=== PATIENT | female | born 1945 | race Caucasian/White ===

== ENCOUNTER 2022-05-18 04:20 | Inpatient (IN) | payer MEDICARE, MEDICAID ==
[~2022-05-18] VITALS: Ht 167.6 cm; Wt 68.0 kg
[2022-05-18] VITALS (77 sets, daily range): BP systolic 65–126; BP diastolic 24–65
--- NOTE | 2022-05-18 04:27 | NUR ---
PT ARRIVED VIA EMS
[2022-05-18] MEDS ORDERED: WARFARIN7.5 MG PO (04:44)
--- NOTE | 2022-05-18 04:49 | NUR ---
PT IN ROOM ON MONITOR, RAPID RHINO IMPREGNATED WITH AFARIN PLACED BY MD IN LEFT NARE, BLEEDING APPEARS TO BE SLOWING, AWAITING LAB FOR TYPE AND SCREEN, WILL CONT TO MONITOR.
[2022-05-18 05:06] LABS: HEMATOCRIT 25.1 % (37.0-47.0); IMMATURE GRANULOCYTES 0.3 % (0.0-5.0); MEAN CELL VOLUME 98.8 fL CALC (80.0-100.0); MEAN CORPUSCULAR HGB 31.5 pG CALC (26.0-32.0); MEAN CORPUSCULAR HGB CONC 31.9 g/dL CAL (32.0-36.0); NEUT# 8.11 thou/uL (2.00-7.15); RED BLOOD COUNT 2.54 mill/uL (4.20-5.60); RED CELL DISTRI WIDTH 15.6 % (11.5-15.5)
[2022-05-18 05:28] LABS: ALBUMIN 3.2 g/dL (3.2-5.0); ALKALINE PHOSPHATASE 91 u/l (38-126); ANION GAP 7 (6-22 (CALC)); BILIRUBIN, TOTAL 0.8 mg/dL (0.0-1.4); BUN 36 mg/dL (8-23); BUN/CREATININE RATIO 47 (12-20 (CALC)); CARBON DIOXIDE 28 mmol/l (22-30); CHLORIDE 103 mmol/l (95-108); CREATININE 0.8 mg/dL (0.5-1.0); GFR FOR AFR.AMER. > 60 ML/MIN (>=60 (CALC)); GFR OTHER RACES > 60 ML/MIN (>=60 (CALC)); POTASSIUM 4.3 mmol/l (3.5-5.1); SGOT/AST 36 u/l (9-36); SODIUM 134 mmol/l (137-146); TOTAL PROTEIN 6.9 g/dL (6.3-8.2)
[2022-05-18 05:30] LABS: ACT PARTIAL THROMBO TIME 41.6 SECONDS (20.0-32.5); PROTHROMBIN TIME 44.8 SECONDS (9.0-12.5)
[2022-05-18 05:36] LABS: INTERNATIONAL NORMALIZED RATIO 4.7 RATIO (0.7-1.3)
--- NOTE | 2022-05-18 05:51 | NUR ---
PT IN ROOM ON MONITOR AWAITING TEST RESULTS, BLEEDING CONTROLLED AT THIS TIME, WILL CONT TO MONITOR.
--- NOTE | 2022-05-18 06:52 | NUR ---
PT TO CT SCAN, PT BLOOD PRESSURE CONTINUES TO BE HYPOTENSIVE DESPITE IV FLUIDS, PROVIDER AWARE.
--- NOTE | 2022-05-18 06:55 | NUR ---
ORDER FOR ADDITIONAL IV FLUIDS RECEIVED, WILL START WHEN PT RETURNS FROM CT SCAN.
[2022-05-18] MEDS ORDERED: METOPROL TAR25 MG PO (07:18)
[2022-05-18] MEDS ORDERED: FUROSEMIDE20 MG PO (07:19)
[2022-05-18] MEDS ORDERED: SPIRONOLACTONE25 MG PO (07:19)
[2022-05-18] MEDS ORDERED: FOLIC ACID1 MG PO (07:20)
[2022-05-18] MEDS ORDERED: METHOTREXATE S2.5 MG PO (07:21)
[2022-05-18] MEDS ORDERED: REMICADE INJ100 MG IV (07:22)
--- NOTE | 2022-05-18 07:37 | NUR ---
REPORT GIVEN TO ADEBAYO BECERRA.
--- NOTE | 2022-05-18 10:08 | NUR ---
RECD CALL FROM [facility] ADVISING PT HAD GASTROENTERITIS VS SMALL BOWEL OBSTRUCTION MID SMALL INTESTINE. ER MD ADVISED. RADIOLOGY ADVISED THEY AREA REACHING OUT TO DR AQUINO FOR VERIFICATION.
--- NOTE | 2022-05-18 10:32 | NUR ---
PT TOLERATING TRANSFUSIONS
--- NOTE | 2022-05-18 10:43 | NUR ---
PT REQUESTED DRESS TO BE REMOVED IT WAS SOILED, AND WANTED TO BE PUT INTO A GOWN. SHE ALSO STATED TO "JUST CUT THE DRESS SO IT WON'T BE TANGLED WITH THE WIRES." HER DRESS WAS CUT AND SHE WAS PUT INTO A GOWN. SHE WAS ALSO NONCOMPLIANT WITH THE PURE WICK AND STATED TO USE BEDSIDE COMODE.
--- NOTE | 2022-05-18 12:00 | NUR ---
PATIENT IS A/OX3, ABLE TO MAKE NEEDS KNOWN TO STAFF. DENIES PAIN AT THIS TIME. CLEAR LUNG SOUNDS. ACTIVE BOWEL SOUNDS. SOFT NON TENDER ABDOMEN. NO OTHER BLEED BESIDES THE NOSE, PLUGGED LEFT NARE. PT STATED SHE "HAD THESE FREQUENT NOSE BLEEDS FOR PAST 2/3 YEARS". NO ARM OR LEG DRIFTS. 3+ PTTING EDEMA BILATERAL LEGS. WEAK PEDAL PULSES. SAFETY MEASURES IN PLACE. BSC. CALL LIGHT IN REACH. WILL CONTINUE TO MONITOR PER HOSPITAL'S POLICY.
--- NOTE | 2022-05-18 13:06 | NUR ---
per doctor mary jo, no more plasma, give just one unit of RBCs
--- NOTE | 2022-05-18 13:20 | NUR ---
INFORMED LAB NO NEED FOR PLASMA
--- NOTE | 2022-05-18 13:30 | NUR ---
PER MOE NO MORE BLOOD TO BE GIVEN, NOT EVEN RBCS STATED EARLIER AFTER ASSESSING PT AT BEDSIDE.
--- NOTE | 2022-05-18 14:00 | NUR ---
INFORMED LAB NO NEED FOR EITHER BLOOD PRODUCTS FOR THE 3RD TIME TODAY.
--- NOTE | 2022-05-18 16:00 | NUR ---
CARIDZEM DRIP STOPPED. VITALS STABLE.
--- NOTE | 2022-05-18 18:25 | NUR ---
LAB CALLED AGAIN, INFORMED THEM AGAIN, NO NEED FOR BLOOD PRODUCTS, THEY SEEM UPSET, PER DOCTOR ORDERS WERE D/C'D HE DOESNT WANT PATIENT TO REICEVE THEM.
--- NOTE | 2022-05-18 20:00 | NUR ---
Patient in bed. nasal packing on the left nares noted.REMAIN ON afib RVR .cardizem drip at 5 mg/hr titrating to keep HR below 100.
--- NOTE | 2022-05-18 21:56 | NUR ---
patient resting. watching TV. no complaint of pain or discomfort.
[2022-05-19] VITALS (73 sets, daily range): BP systolic 91–126; BP diastolic 31–82
--- NOTE | 2022-05-19 | NUR ---
assisted to bedside commode. no s/s of distressnoted.
--- NOTE | 2022-05-19 02:59 | NUR ---
PATIENT AWAKE ,ALERT ,WATCHING T.V . NO C/C OF DISTRESS. REMAIN ON CARDIZEM DRIP.
--- NOTE | 2022-05-19 03:53 | NUR ---
Patient sleeping .nasal packing remain intact. remain on cardizem drip at 5 mg/hr
--- NOTE | 2022-05-19 04:24 | NUR ---
patient is awake. watching TV. denies any discomfort. continue to monitor.
[2022-05-19 05:35] LABS: HEMATOCRIT 23.6 % (37.0-47.0); HEMOGLOBIN 7.9 g/dl (12.0-16.0); MEAN CELL VOLUME 94.4 fL CALC (80.0-100.0); MEAN CORPUSCULAR HGB 31.6 pG CALC (26.0-32.0); MEAN CORPUSCULAR HGB CONC 33.5 g/dL CAL (32.0-36.0); RED BLOOD COUNT 2.5 mill/uL (4.20-5.60); RED CELL DISTRI WIDTH 16.2 % (11.5-15.5)
--- NOTE | 2022-05-19 05:42 | NUR ---
patient watching TV. assisted to bedside commode
[2022-05-19 06:03] LABS: INTERNATIONAL NORMALIZED RATIO 1.2 RATIO (0.7-1.3); PROTHROMBIN TIME 12.7 SECONDS (9.0-12.5)
[2022-05-19 06:04] LABS: ANION GAP 8 (6-22 (CALC)); BUN 29 mg/dL (8-23); BUN/CREATININE RATIO 40 (12-20 (CALC)); CARBON DIOXIDE 25 mmol/l (22-30); CHLORIDE 107 mmol/l (95-108); CREATININE 0.7 mg/dL (0.5-1.0); GFR FOR AFR.AMER. > 60 ML/MIN (>=60 (CALC)); GFR OTHER RACES > 60 ML/MIN (>=60 (CALC)); MAGNESIUM 1.9 mg/dL (1.6-2.3); SODIUM 137 mmol/l (137-146)
--- NOTE | 2022-05-19 07:45 | NUR ---
pt awake in bed; no apparent distress noted; assessment completed at this time; pt alert and oriented; admits to lower back pain; will medicate; no n/v noted; resp even and unlabored; lungs clear bilat; skin color wnl; o2 per nc at 2L; nasal tampon noted to left nare; hr irreg/ murmur noted; strong pulses; edema noted to ble; afib on monitor; abd soft with bs present; no bm noted per health technical writer; pt assisted to bsc; voiding clear moustapha urine; pericare per pt; #20 flushed and patent to rac; #20 patent to rfa with cardizrm gtt infusing at 5mg/hr; no redness or edema noted at site; pt assisted to recliner; slow unsteady gait, pt admits to using a walker at home; plan of care/ meds explained; call light within reach; will continue to monitor
--- NOTE | 2022-05-19 08:19 | NUR ---
awake in recliner eatint breakfast; pillow placed behind lower back as per request; iv intact; cardizem at 5mg/hr; afib on monitor; call light within reach; will continue to monitor
--- NOTE | 2022-05-19 10:06 | NUR ---
Dr Pack present at bedside to assess pt and discuss plan of care
--- NOTE | 2022-05-19 12:10 | NUR ---
pt awake sitting at the side of the bed eating lunch; warm pack applied to lower back; pt with complaints warm pack not "hot enough"; iv intact; afib on monitor; cardizem gtt at 5mg/hr; rhino rocket remains in place; will continue to monitor
--- NOTE | 2022-05-19 14:20 | NUR ---
awake in bed; no apparent distress noted; afib on monitor; no apparent distress noted; cardizem gtt maintained at 5mg/hr; nasal rhino rocket remains intact; scant serosang drainage noted from right nare; call light within reach; will continue to monitor
--- NOTE | 2022-05-19 15:24 | NUR ---
family present at bedside; update provided; will continue to monitor
--- NOTE | 2022-05-19 16:00 | NUR ---
awake in bed; offers no complaints; iv intact and patent; afib on monitor; nasal tampon intact; will continue to monitor
--- NOTE | 2022-05-19 17:05 | NUR ---
awake in bed; offers no complaints; denies needs; iv intact; afib on monitor; will continue to monitor
--- NOTE | 2022-05-19 18:11 | NUR ---
awake in bed eating dinner; offers no complaints; no apparent distress noted; afib on monitor; iv intact; nasal rhino rocket remains intact; call light within reach
--- NOTE | 2022-05-19 19:45 | NUR ---
awake. sitting in recliner. no distress. nasal tampon in place. no active nosebleed. playground monitor shows afib. #20 rac saline lock. po fluids taken well. voids per bsc. fall precautions cont.
--- NOTE | 2022-05-19 21:30 | NUR ---
voided per bedside commode then assisted to bed. daniel well. hob in high fowlers position.
[2022-05-20] VITALS (27 sets, daily range): BP systolic 85–120; BP diastolic 43–70
--- NOTE | 2022-05-20 00:01 | NUR ---
eyes closed. no distress. cardiac monitor technician shows a fib pvcs.
--- NOTE | 2022-05-20 02:00 | NUR ---
eyes closed. nad. no nosebleed.
--- NOTE | 2022-05-20 04:50 | NUR ---
lab here. blood drawn. up to bsc then to recliner. daniel well.
[2022-05-20 05:31] LABS: HEMATOCRIT 25.6 % (37.0-47.0); HEMOGLOBIN 8.3 g/dl (12.0-16.0); MEAN CELL VOLUME 96.2 fL CALC (80.0-100.0); MEAN CORPUSCULAR HGB 31.2 pG CALC (26.0-32.0); MEAN CORPUSCULAR HGB CONC 32.4 g/dL CAL (32.0-36.0); RED BLOOD COUNT 2.66 mill/uL (4.20-5.60); RED CELL DISTRI WIDTH 16.8 % (11.5-15.5)
[2022-05-20 05:49] LABS: INTERNATIONAL NORMALIZED RATIO 1.1 RATIO (0.7-1.3); PROTHROMBIN TIME 11.8 SECONDS (9.0-12.5)
[2022-05-20 05:52] LABS: ANION GAP 10 (6-22 (CALC)); BUN 24 mg/dL (8-23); BUN/CREATININE RATIO 32 (12-20 (CALC)); CARBON DIOXIDE 23 mmol/l (22-30); CHLORIDE 105 mmol/l (95-108); CREATININE 0.8 mg/dL (0.5-1.0); GFR FOR AFR.AMER. > 60 ML/MIN (>=60 (CALC)); GFR OTHER RACES > 60 ML/MIN (>=60 (CALC)); POTASSIUM 4.3 mmol/l (3.5-5.1); SODIUM 134 mmol/l (137-146)
--- NOTE | 2022-05-20 10:14 | NUR ---
Rhino rocket removed, no bleeding noted, patient tolerated well.
--- NOTE | 2022-05-20 18:58 | NUR ---
PATIENT STATING SHE IS HAVING ACHING PAIN IN HER BACK AND IT IS A 4 ON THE PAIN SCALE OF 0-10. PATIENT GIVEN 650MG OF TYLENOL PO AT THIS TIME AND WILL CONTINUE TO MONITOR.
--- NOTE | 2022-05-20 19:00 | NUR ---
PATIENT RESTING IN BED AT THIS TIME. PATIENT IS ALERT AND ORIENTED X 3, PATIENT STATED "I HAVE SOME PAIN IN MY BACK AND IT IS ACHING AND ON A PAIN SCALE OF 0-10 PATIENT STATES IT IS A 4 AT THIS TIME. PATIENT LUNG CORNEJO ARE DIMINISHED AND BOWEL SOUNDS ARE PRESENT IN ALL FOUR QUADRANTS. PATIENT PEDAL PULSES ARE STRONG AND TRACE OF EDEMA NOTED ON BILATERAL ANKLES. SIDERAILS ARE UP X 3 CALL LIGHT IS WITHIN REACH AND GRANT COORDINATOR SHOWING A-FIB WITH OCCASSION PVC AND HR OF 105. PATIENT HEART SOUND HEARD AND POSITIVE FOR MURMUR. WILL CONTINUE TO MONITOR.
--- NOTE | 2022-05-20 20:01 | NUR ---
PATIENT PAIN RE-EVALUATED AT THIS TIME AND SHE STATES IS IS NOW A "2" AND THAT TYLENOL HAS HELPED. WILL CONTINUE TO MONITOR.
--- NOTE | 2022-05-20 20:45 | NUR ---
PATIENT RESTING IN BED AT THIS TIME MEDICATION GIVEN PER ORDERS. IV SITE FLUSHED AND WITHOUT ISSUES. PATIENT STATES HER PAIN IS STILL A 2 OUT OF THE PAIN SCALE OF 0-10 SIDERAILS ARE UP CALL LIGHT NEAR. DIETARY INTERNSHIP READING AFIB AND HR OF 96 WILL CONTINUE TO MONITOR.
--- NOTE | 2022-05-20 22:04 | NUR ---
PATIENT LAYING IN BED AT THIS TIME. EYE'S CLOSED AND RESPIRATIONS ARE EASY AND UNLABORED. PATIENT HAS 02 ON AT 2 LITERS AND SPO2 IS CURRENTLY 98%. GRADUATE ASSISTANT IS READING AFIB AND HEART RATE OF 85 AT THIS TIME. WILL CONTINUE TO MONITOR AND BP IS CURRENTLY 98/54.
--- NOTE | 2022-05-20 23:43 | NUR ---
Patient placed on 30% Venturi Mask due to oxygen desaturation.
--- NOTE | 2022-05-20 23:54 | NUR ---
PATIENT LAYING IN BED AT THIS TIME. PATIENT REFUSING TO CONTINUE WEARING 02 NASAL CANNULA AT THIS TIME. RESPIRATORY CALLED AND PLACED VENTI-MASK ON AT 6L/30% PATIENT HAD NOTED EPISTAXIS WIHT BRIGHT RED BLOOD DRAINING IN BACK OF THROAT WELL. PATIENT STATES WHEN SHE WEARS O2 IT CAUSES HER TO HAVE NOSE BLEEDS. PATIENTS BAKERY HELPER IS READING CURRENTLY AFIB AND HR OF 85 BP IS CURRENTLY 120/56. WILL CONTINUE TO MONITOR.
--- NOTE | 2022-05-20 23:59 | NUR ---
PATIENT CALLED THIS NURES BACK INTO ROOM AND STATED "I CAN'T WEAR THIS VENTI MASK AND I DON'T WANT TO WEAR ANY OXYGEN I CAN BREATH OK ON MY OWN". PATIENT GIVEN EDUCATION REGARDING HER OXGENATION OF RUNNING LOW IN THE UPPER 80'S, PATIENT STATES "I DO NOT FEEL IF I AM NOT BREATHING I HAVE BEEN DOING THIS FOR YEARS AND I DON'T WANT THE OXYGEN". VENTI MASK REMOVED AND PATIENT ADVISED THIS NURSE WILL MONITOR HER CLOSELY AND IF SHE AT ANY TIME FEELS IF SHE IS SHORT OF BREATH TO PUSH CALL LIGHT FOR NURSE ASSISTANCE. PATIENT AGREED TO THIS AND VERBALIZED UNDERSTANDING OF RISK OF LOW OXYGENATION. SIDERAILS ARE UP CALL LIGHT IS [place] [employer] REACH. SPO2 CURRENTLY IS 83%.
[2022-05-21] VITALS (28 sets, daily range): BP systolic 83–124; BP diastolic 39–79
--- NOTE | 2022-05-21 02:07 | NUR ---
PATIENT RESTING IN BED AT THIS TIME WITH EYES CLOSED AND RESPIRATIONS EASY AND UNLABORED. DECAL DECORATOR READING AFIB AND HR OF 81 SPO2 IS 87% AND NO SIGNS OF SHORTNESS OF BREATH. SIDERAILS ARE UP CALL LIGHT WIHTIN REACH.
--- NOTE | 2022-05-21 03:58 | NUR ---
PATIENT SITTING UP ON BEDSIDE AT THIS TIME. PATIENT STATES THAT SHE FEELS "FINE" FORMS BUILDER READING AFIB AND HR OF 108. PATIENT REFUSES TO WEAR 02 AND STATES "I'M BREATING JUST FINE". SPO2 CURRENTLY IS 88%. BP IS 124/79. CALL LIGHT IS WITHIN REACH SIDERAILS ARE UP X 2 WILL CONTINUE TO MONITOR.
--- NOTE | 2022-05-21 04:50 | NUR ---
PATIENT CALLED NURSE INTO ROOM TO REPORT EPISTAXIS AT THIS TIME. SMALL AMOUNT OF BRIGHT RED BLOOD NOTED ON TISSUE AND PATIENT EDUCATED ON NOT BLOWING NOSE AND OR PICK AT NOSE. ICE PACK APPLIED TO BRIDGE OF NOSE AND BLEEDING DID STOP AT THIS TIME. WILL CONTINUE TO MONIOTOR. BP AT THIS TIME IS 95/60 .
[2022-05-21 06:03] LABS: HEMATOCRIT 25.5 % (37.0-47.0); HEMOGLOBIN 8.2 g/dl (12.0-16.0); MEAN CELL VOLUME 97.7 fL CALC (80.0-100.0); MEAN CORPUSCULAR HGB 31.4 pG CALC (26.0-32.0); MEAN CORPUSCULAR HGB CONC 32.2 g/dL CAL (32.0-36.0); RED BLOOD COUNT 2.61 mill/uL (4.20-5.60)
[2022-05-21 06:04] LABS: INTERNATIONAL NORMALIZED RATIO 1.1 RATIO (0.7-1.3); PROTHROMBIN TIME 11.7 SECONDS (9.0-12.5)
[2022-05-21 06:07] LABS: ANION GAP 10 (6-22 (CALC)); BUN 19 mg/dL (8-23); BUN/CREATININE RATIO 26 (12-20 (CALC)); CARBON DIOXIDE 24 mmol/l (22-30); CHLORIDE 103 mmol/l (95-108); CREATININE 0.7 mg/dL (0.5-1.0); GFR FOR AFR.AMER. > 60 ML/MIN (>=60 (CALC)); GFR OTHER RACES > 60 ML/MIN (>=60 (CALC)); POTASSIUM 4.2 mmol/l (3.5-5.1); SODIUM 133 mmol/l (137-146)
--- NOTE | 2022-05-21 18:35 | NUR ---
pt has been up to chair all day, family at bedside at this time, HR generally in low 100's but does increase with movement, tylenol given for c/o lower back pain
--- NOTE | 2022-05-21 19:10 | NUR ---
REPORT RECEIVED FROM Meli ANDERSON RN.
--- NOTE | 2022-05-21 19:45 | NUR ---
ASSESMENT COMPLETED AT THIS TIME. PATIENT ALERT AND ORIENTED X3.IRREGULAR HEART RATE, CLEAR/DIMMINISHED LUNG SOUNDS. IV SITE #22 IN RFA SALINE LOCKED. FLUSHED AND PATENT. DENIES ANY CURRENT PAIN OR DISCOMFORT AT THIS TIME. FAMILY FRIEND AT BEDSIDE. PATIENT EDUCATED ON PLAN OF CARE, ORIENTED TO CALL LIGHT SYSTEM. CALL LIGHT AND BEDSIDE TABLE WITHIH REACH. BED ALARM IN PLACE FOR SAFETY.
--- NOTE | 2022-05-21 20:06 | NUR ---
PATIENTS FRIEND AT BEDSIDE.
--- NOTE | 2022-05-21 21:05 | NUR ---
MEDICATIONS ADMINISTERED PER EMAR, PATIENT EDUCATED ON MEDICATIONS GIVEN. VERBALIZES UNDERSTANDING.
--- NOTE | 2022-05-21 23:20 | NUR ---
PATIENT UP TO THE [facility] COMMODE AT THIS TIME. WITH SSITANCE X1.
[2022-05-22] VITALS (19 sets, daily range): BP systolic 91–121; BP diastolic 34–62
--- NOTE | 2022-05-22 00:59 | NUR ---
PATIENT OXYGEN AT 87%, ATTEMPTED TO APPLY OXYGEN BUT PATIENT REFUSING, STATES THE "OXYGEN MAKES HER NOSE BLEED". ATTAEMPTS MADE TO EDUCATED PATIENT UNSUCCESSFUL.
--- NOTE | 2022-05-22 01:56 | NUR ---
PATIENT SLEEPING SOUNDLY. AWOKEN BY WRITTER. DENIES ANY CURRENT NEEDS. CALL LIGHT AND BEDSIDE TABLE WITHIN REACH.
--- NOTE | 2022-05-22 04:22 | NUR ---
TYLENOL ADMINISTERED FOR BACK PAIN 02/11. PATIENT DENIES ANY FURTHER NEEDS AT THIS TIME.
[2022-05-22 04:55] LABS: HEMATOCRIT 24.3 % (37.0-47.0); HEMOGLOBIN 7.9 g/dl (12.0-16.0); MEAN CELL VOLUME 96.8 fL CALC (80.0-100.0); MEAN CORPUSCULAR HGB 31.5 pG CALC (26.0-32.0); MEAN CORPUSCULAR HGB CONC 32.5 g/dL CAL (32.0-36.0); RED BLOOD COUNT 2.51 mill/uL (4.20-5.60); RED CELL DISTRI WIDTH 16.8 % (11.5-15.5)
[2022-05-22 05:20] LABS: ANION GAP 9 (6-22 (CALC)); BUN 16 mg/dL (8-23); BUN/CREATININE RATIO 23 (12-20 (CALC)); CARBON DIOXIDE 24 mmol/l (22-30); CHLORIDE 104 mmol/l (95-108); CREATININE 0.7 mg/dL (0.5-1.0); GFR FOR AFR.AMER. > 60 ML/MIN (>=60 (CALC)); GFR OTHER RACES > 60 ML/MIN (>=60 (CALC)); POTASSIUM 4.3 mmol/l (3.5-5.1); SODIUM 132 mmol/l (137-146)
--- NOTE | 2022-05-22 05:30 | NUR ---
PAIN REASSEMENT, PATIENT SLEEPING SOUNDLY AT THIS TIME. NO APAPRENT DISTRESS NOTED.
--- NOTE | 2022-05-22 06:12 | NUR ---
PATIENT RESITNG COMFORTBALY, DENIES ANY CURRETNT NEEDS. CALL LIGHT AND BEDSIDE TABLE WIHITHN REACH.
--- NOTE | 2022-05-22 06:32 | NUR ---
OXYGEN ON 2 L AT BEDSIDE. PATIENT CONTINUES TO DECLINE OXYGEN USE. PATIENT DESTATS ONTO HIGH 80'S, BUT INCREASES QUICKLY.
[2022-05-22 07:00] LABS: INTERNATIONAL NORMALIZED RATIO 1.3 RATIO (0.7-1.3)
--- NOTE | 2022-05-22 10:00 | NUR ---
Patient to transfer to med/surg room 279 per MD order
--- NOTE | 2022-05-22 10:37 | NUR ---
Hand off report given to HERNAN Goldman inpatient treatment nurse med/surge unit.
--- NOTE | 2022-05-22 11:10 | NUR ---
RECEIVED PATIENT AN ICU TRANSFER. REPORT GIVEN TO ME BY ICU NURSE. PATIENT ASSESSED. AOX4. PATIENT AMBULATED FROM WHEEL CHAIR TO BED ON HER OWN WITH JUST A STANDBY ASSIST. PATIENT DENIES AND DISTRESS AT THIS TIME. ORIENTATED PATIENT TO ROOM, BATHROOM, CALL LIGHT, BEDSIDE TABLE, AND PHONE. NO QUESTIONS OR CONCERNS AT THIS TIME. ADVISED PATIENT TO CALL IF SHE NEEDS ANYTHING.
--- NOTE | 2022-05-22 11:16 | NUR ---
Patient transfered to [facility] by wheelchair, met by inpatient nurse HERNAN Goldman
--- NOTE | 2022-05-22 11:58 | NUR ---
Pt seen this am in ICU. She was OOB in chair without complaints voiced. She was able to transfer chair to and from bed with supervision and line management. Gait with RW 2x40' with supervision and vc for proper sit to stand and turning. Pt with some safety issue but no LOB noted. LE ex performed in sitting 2 x 10 reps. She reported her son has found an SENIOR LIVING for her and she wishes to go to only 1 place when d/c, not rehab then SENIOR LIVING BP 98/56, 121/54, 02 sats on RA 93-88-90, HR 104 up to 140 but resolves to 104 with rest. Time with pt 40 min A- Pt moving with RW and transfers with supervision, [facility] 14 ECF or BILL with home health. P - Continue per POC increasing mobility skills as medical status permits.
--- NOTE | 2022-05-22 16:00 | NUR ---
NO SXS OF DISTRESS, CALL LIGHT AND BEDSIDE TABLE WITH IN REACH. ADVISED TO CALL IF NEEDING ANYTHING.
--- NOTE | 2022-05-22 20:10 | NUR ---
PATIENT SITTING UP IN RECLINER AT THIS TIME-AWAKE ALERT AND ORIENTEDX3. PATIENT WITH C/O CHRONIC BACK PAIN AND MEDICATED WITH TYLENOL 650MG PO. TELE MONITOR IN PLACE READING A-FIB-82. SALIKNE LOCK TO LEFT FOREARM INTACT. NO S/S OF BLEEDING AT THIS TIME. LUNGS ARE CLEAR. ABD IS SOFT WITH BS PRESENT. STATES LAST BM WAS TODAY. DENIES ANY DIFFICULTY WITH URINATION. SAFETY PRECAUTIONS REINFORCED. CALL LIGHT IN REACH. WILL CONT TO MONITOR.
[2022-05-23 00:14] VITALS: BP 94/39
--- NOTE | 2022-05-23 00:46 | NUR ---
PATIENT RESTING IN BED WATCHING TV AT THIS TIME. NO COMPLAINTS. TELE MONTIOR IN PLACE. CALL LIGHT IN REACH. WILL CONT TO MONITOR.
[2022-05-23 06:41] LABS: HEMATOCRIT 24.3 % (37.0-47.0); MEAN CELL VOLUME 96.8 fL CALC (80.0-100.0); MEAN CORPUSCULAR HGB 31.9 pG CALC (26.0-32.0); MEAN CORPUSCULAR HGB CONC 32.9 g/dL CAL (32.0-36.0); RED BLOOD COUNT 2.51 mill/uL (4.20-5.60); RED CELL DISTRI WIDTH 16.8 % (11.5-15.5)
[2022-05-23 06:55] LABS: INTERNATIONAL NORMALIZED RATIO 1.5 RATIO (0.7-1.3); PROTHROMBIN TIME 15.1 SECONDS (9.0-12.5)
[2022-05-23 07:15] VITALS: BP 117/37
[2022-05-23 07:15] LABS: ANION GAP 7 (6-22 (CALC)); BUN 15 mg/dL (8-23); BUN/CREATININE RATIO 20 (12-20 (CALC)); CARBON DIOXIDE 26 mmol/l (22-30); CHLORIDE 105 mmol/l (95-108); CREATININE 0.8 mg/dL (0.5-1.0); GFR FOR AFR.AMER. > 60 ML/MIN (>=60 (CALC)); GFR OTHER RACES > 60 ML/MIN (>=60 (CALC)); SODIUM 135 mmol/l (137-146)
--- NOTE | 2022-05-23 08:00 | NUR ---
AWAKE, ALERT, NO SIGNS OR SYMPTOMS OF DISTRESS NOTED OR VOICED.
[2022-05-23 11:19] VITALS: BP 101/40
--- NOTE | 2022-05-23 11:39 | NUR ---
Pt resting in recliner on room air (refuses 02 use). She was without complaints voiced. Gait with RW 2x 100' with CGA/SBA and verbal cues for safety with walker, she tends to make quick turns and improper sit to stand execution. LE ex performed in sittin 2 x 10 reps including ankle DF, LAQ, hip flexion. Pt reported legs being fatigued after treatment. She was left in chair with tray/callbell in reach. Pt reminded to have assist with mobility. BP 90/50 (pt denied dizziness/COBIAN), HR 90-101-90, 02 sats 90 at rest desats to 86 after walking and back to 96% with rest. Time with pt 35 min. A- [facility] ECF Pt with overall weakness and safety issues in mobility. P- Will follow until d/c to improve safety and mobility skills.
[2022-05-23] MEDS ORDERED: PANTOPRAZOLE SO40 M1 PO (12:21)
[2022-05-23] MEDS ORDERED: FERROUS SULF325 M3 PO (12:21)
[2022-05-23] MEDS ORDERED: ENOXAPARIN60 MG/0.1 SC (12:21)
--- NOTE | 2022-05-23 12:48 | NUR ---
RESTING QUIETLY IN ROOM, UP IN CHAIR, AWAITING TRANSFER TO REHAB AT 1600.
--- NOTE | 2022-05-23 16:07 | NUR ---
PATIENT DISCHARGED TO REHAB IN STABLE CONDITION, IV REMOVED, INSTRUCTIONS GIVEN AND UNDERSTANDING VERBALIZED.
== END 2022-05-23 16:05 | DRG 309 ==
LOC: ED 04:20 → ED-I 09:15 → ED 09:36 → ICU 09:37 → MS2 05-22 11:31
PROVIDERS: Family Medicine; ADMIT Hospitalist; ATTEND Internal Medicine
PROC: 30233K1 Transfusion of Nonautologous Frozen Plasma into Peripheral Vein, Percutaneous Approach (ICD-10-PCS; principal; 2022-05-18)
PROC: 30233N1 Transfusion of Nonautologous Red Blood Cells into Peripheral Vein, Percutaneous Approach (ICD-10-PCS; 2022-05-18)
PROC: 2Y41X5Z Packing of Nasal Region using Packing Material (ICD-10-PCS; 2022-05-18)
DX: I48.20 Chronic atrial fibrillation, unspecified (principal); D62 Acute posthemorrhagic anemia; R04.0 Epistaxis; R79.1 Abnormal coagulation profile; I11.0 Hypertensive heart disease with heart failure; I50.9 Heart failure, unspecified; T45.515A Adverse effect of anticoagulants, initial encounter; D50.9 Iron deficiency anemia, unspecified; M06.9 Rheumatoid arthritis, unspecified; Z95.2 Presence of prosthetic heart valve; Z60.2 Problems related to living alone; Z91.81 History of falling; Z79.01 Long term (current) use of anticoagulants; Z20.822 Contact with and (suspected) exposure to COVID-19
CPT/HCPCS: G0378; J1650; J1756; P9016; Q9967; S0164

== ENCOUNTER 2022-07-20 17:53 | Inpatient (IN) | payer MEDICARE, MEDICAID ==
[~2022-07-20] VITALS: Ht 167.6 cm; Wt 79.4 kg
[2022-07-20] VITALS (20 sets, daily range): BP systolic 92–115; BP diastolic 46–68
[~2022-07-20 17:53] MED LIST: ENOXAPARIN60 MG/0.1 SC; FERROUS SULF325 M3 PO; FOLIC ACID1 MG PO; LASIX 40 MG TAB40 MG PO; METHOTREXATE S2.5 MG PO; METOPROL TAR25 MG PO; PANTOPRAZOLE SO40 M1 PO; REMICADE INJ100 MG IV; SPIRONOLACTONE25 MG PO; WARFARIN7.5 MG PO
[2022-07-20 18:27] LABS: HEMATOCRIT 25.6 % (37.0-47.0); HEMOGLOBIN 8.4 g/dl (12.0-16.0); IMMATURE GRANULOCYTES 0.9 % (0.0-5.0); MEAN CELL VOLUME 102.8 fL CALC (80.0-100.0); MEAN CORPUSCULAR HGB 33.7 pG CALC (26.0-32.0); MEAN CORPUSCULAR HGB CONC 32.8 g/dL CAL (32.0-36.0); NEUT# 5.17 thou/uL (2.00-7.15); RED BLOOD COUNT 2.49 mill/uL (4.20-5.60); RED CELL DISTRI WIDTH 24.7 % (11.5-15.5)
[2022-07-20 18:39] LABS: ALBUMIN 3.9 g/dL (3.2-5.0); ALKALINE PHOSPHATASE 109 u/l (38-126); ANION GAP 14 (6-22 (CALC)); BUN 18 mg/dL (8-23); BUN/CREATININE RATIO 23 (12-20 (CALC)); CARBON DIOXIDE 22 mmol/l (22-30); CHLORIDE 103 mmol/l (95-108); CREATININE 0.8 mg/dL (0.5-1.0); GFR FOR AFR.AMER. > 60 ML/MIN (>=60 (CALC)); GFR OTHER RACES > 60 ML/MIN (>=60 (CALC)); POTASSIUM 4.6 mmol/l (3.5-5.1); SGOT/AST 48 u/l (9-36); SODIUM 134 mmol/l (137-146); TOTAL PROTEIN 8.1 g/dL (6.3-8.2)
[2022-07-20 18:51] LABS: BILIRUBIN, TOTAL 2.1 mg/dL (0.0-1.4)
[2022-07-20 18:55] LABS: INTERNATIONAL NORMALIZED RATIO 4.2 RATIO (0.7-1.3); PROTHROMBIN TIME 38.9 SECONDS (9.0-12.5)
[2022-07-21] VITALS (17 sets, daily range): BP systolic 91–142; BP diastolic 33–89
[2022-07-21 06:16] LABS: HEMATOCRIT 23.9 % (37.0-47.0); HEMOGLOBIN 7.9 g/dl (12.0-16.0); IMMATURE GRANULOCYTES 1.5 % (0.0-5.0); MEAN CORPUSCULAR HGB 34.1 pG CALC (26.0-32.0); MEAN CORPUSCULAR HGB CONC 33.1 g/dL CAL (32.0-36.0); NEUT# 3.59 thou/uL (2.00-7.15); RED BLOOD COUNT 2.32 mill/uL (4.20-5.60)
[2022-07-21 06:35] LABS: ALBUMIN 3.2 g/dL (3.2-5.0); ALKALINE PHOSPHATASE 102 u/l (38-126); BILIRUBIN, TOTAL 1.6 mg/dL (0.0-1.4); BUN 16 mg/dL (8-23); BUN/CREATININE RATIO 21 (12-20 (CALC)); CARBON DIOXIDE 20 mmol/l (22-30); CREATININE 0.7 mg/dL (0.5-1.0); GFR FOR AFR.AMER. > 60 ML/MIN (>=60 (CALC)); GFR OTHER RACES > 60 ML/MIN (>=60 (CALC)); MAGNESIUM 2.1 mg/dL (1.6-2.3); POTASSIUM 4.3 mmol/l (3.5-5.1); SGOT/AST 37 u/l (9-36); SODIUM 134 mmol/l (137-146); TOTAL PROTEIN 6.8 g/dL (6.3-8.2)
[2022-07-21 06:37] LABS: ANION GAP 13 (6-22 (CALC)); CHLORIDE 105 mmol/l (95-108)
[2022-07-21 07:02] LABS: INTERNATIONAL NORMALIZED RATIO 4.3 RATIO (0.7-1.3); PROTHROMBIN TIME 40.3 SECONDS (9.0-12.5)
[2022-07-22 01:15] VITALS: BP 114/63
[2022-07-22 04:03] VITALS: BP 107/45
[2022-07-22 05:34] LABS: HEMATOCRIT 26.1 % (37.0-47.0); HEMOGLOBIN 8.9 g/dl (12.0-16.0); IMMATURE GRANULOCYTES 1.3 % (0.0-5.0); MEAN CELL VOLUME 98.1 fL CALC (80.0-100.0); MEAN CORPUSCULAR HGB 33.5 pG CALC (26.0-32.0); MEAN CORPUSCULAR HGB CONC 34.1 g/dL CAL (32.0-36.0); NEUT# 4.24 thou/uL (2.00-7.15); RED BLOOD COUNT 2.66 mill/uL (4.20-5.60); RED CELL DISTRI WIDTH 25.3 % (11.5-15.5)
[2022-07-22 05:59] LABS: INTERNATIONAL NORMALIZED RATIO 3.4 RATIO (0.7-1.3); PROTHROMBIN TIME 31.7 SECONDS (9.0-12.5)
[2022-07-22 06:08] LABS: ALBUMIN 3.3 g/dL (3.2-5.0); ALKALINE PHOSPHATASE 98 u/l (38-126); BILIRUBIN, TOTAL 2.1 mg/dL (0.0-1.4); BUN 16 mg/dL (8-23); BUN/CREATININE RATIO 22 (12-20 (CALC)); CARBON DIOXIDE 19 mmol/l (22-30); CHLORIDE 105 mmol/l (95-108); CREATININE 0.8 mg/dL (0.5-1.0); GFR FOR AFR.AMER. > 60 ML/MIN (>=60 (CALC)); GFR OTHER RACES > 60 ML/MIN (>=60 (CALC)); SGOT/AST 62 u/l (9-36); SODIUM 131 mmol/l (137-146); TOTAL PROTEIN 7.2 g/dL (6.3-8.2)
[2022-07-22 06:16] LABS: ANION GAP 12 (6-22 (CALC))
[2022-07-22 06:17] LABS: POTASSIUM 5.4 mmol/l (3.5-5.1)
[2022-07-22 06:50] VITALS: BP 101/32
[2022-07-22 08:50] VITALS: BP 119/56
[2022-07-22 10:58] VITALS: BP 90/35
[2022-07-22 19:36] VITALS: BP 104/52
[2022-07-23 00:09] VITALS: BP 102/47
[2022-07-23 04:18] VITALS: BP 87/51
[2022-07-23 05:07] LABS: HEMATOCRIT 28.1 % (37.0-47.0); HEMOGLOBIN 9.3 g/dl (12.0-16.0); IMMATURE GRANULOCYTES 1.1 % (0.0-5.0); MEAN CELL VOLUME 101.1 fL CALC (80.0-100.0); MEAN CORPUSCULAR HGB 33.5 pG CALC (26.0-32.0); MEAN CORPUSCULAR HGB CONC 33.1 g/dL CAL (32.0-36.0); NEUT# 4.76 thou/uL (2.00-7.15); RED BLOOD COUNT 2.78 mill/uL (4.20-5.60); RED CELL DISTRI WIDTH 25.6 % (11.5-15.5)
[2022-07-23 05:36] LABS: ANION GAP 12 (6-22 (CALC)); BUN 16 mg/dL (8-23); BUN/CREATININE RATIO 24 (12-20 (CALC)); CARBON DIOXIDE 21 mmol/l (22-30); CHLORIDE 101 mmol/l (95-108); CREATININE 0.7 mg/dL (0.5-1.0); GFR FOR AFR.AMER. > 60 ML/MIN (>=60 (CALC)); GFR OTHER RACES > 60 ML/MIN (>=60 (CALC)); SODIUM 130 mmol/l (137-146)
[2022-07-23 05:37] LABS: POTASSIUM 4.3 mmol/l (3.5-5.1)
[2022-07-23 05:49] LABS: INTERNATIONAL NORMALIZED RATIO 2.1 RATIO (0.7-1.3); PROTHROMBIN TIME 20.1 SECONDS (9.0-12.5)
[2022-07-23 06:28] VITALS: BP 103/62
[2022-07-23 10:11] VITALS: BP 103/43
[2022-07-23 14:25] VITALS: BP 133/74
[2022-07-23 19:14] VITALS: BP 111/59
[2022-07-24] VITALS (7 sets, daily range): BP systolic 100–120; BP diastolic 48–69
[2022-07-24 05:39] LABS: HEMATOCRIT 26.6 % (37.0-47.0); HEMOGLOBIN 8.8 g/dl (12.0-16.0); IMMATURE GRANULOCYTES 0.8 % (0.0-5.0); MEAN CELL VOLUME 100.4 fL CALC (80.0-100.0); MEAN CORPUSCULAR HGB 33.2 pG CALC (26.0-32.0); MEAN CORPUSCULAR HGB CONC 33.1 g/dL CAL (32.0-36.0); NEUT# 3.97 thou/uL (2.00-7.15); RED BLOOD COUNT 2.65 mill/uL (4.20-5.60); RED CELL DISTRI WIDTH 24.9 % (11.5-15.5)
[2022-07-24 06:16] LABS: INTERNATIONAL NORMALIZED RATIO 2.1 RATIO (0.7-1.3); PROTHROMBIN TIME 19.8 SECONDS (9.0-12.5)
[2022-07-24 06:20] LABS: ALBUMIN 3.1 g/dL (3.2-5.0); ALKALINE PHOSPHATASE 109 u/l (38-126); ANION GAP 12 (6-22 (CALC)); BILIRUBIN, TOTAL 1.6 mg/dL (0.0-1.4); BUN 20 mg/dL (8-23); BUN/CREATININE RATIO 32 (12-20 (CALC)); CARBON DIOXIDE 20 mmol/l (22-30); CHLORIDE 104 mmol/l (95-108); CREATININE 0.6 mg/dL (0.5-1.0); GFR FOR AFR.AMER. > 60 ML/MIN (>=60 (CALC)); GFR OTHER RACES > 60 ML/MIN (>=60 (CALC)); MAGNESIUM 2.1 mg/dL (1.6-2.3); POTASSIUM 4.5 mmol/l (3.5-5.1); SGOT/AST 52 u/l (9-36); SODIUM 131 mmol/l (137-146); TOTAL PROTEIN 7.1 g/dL (6.3-8.2)
[2022-07-25] VITALS (8 sets, daily range): BP systolic 99–120; BP diastolic 46–68
[2022-07-25 04:48] LABS: HEMATOCRIT 27.5 % (37.0-47.0); HEMOGLOBIN 8.8 g/dl (12.0-16.0); RED BLOOD COUNT 2.67 mill/uL (4.20-5.60); RED CELL DISTRI WIDTH 24.5 % (11.5-15.5)
[2022-07-25 05:07] LABS: ANION GAP 11 (6-22 (CALC)); BUN 23 mg/dL (8-23); BUN/CREATININE RATIO 34 (12-20 (CALC)); CARBON DIOXIDE 21 mmol/l (22-30); CHLORIDE 105 mmol/l (95-108); CREATININE 0.7 mg/dL (0.5-1.0); GFR FOR AFR.AMER. > 60 ML/MIN (>=60 (CALC)); GFR OTHER RACES > 60 ML/MIN (>=60 (CALC)); MAGNESIUM 2.3 mg/dL (1.6-2.3); POTASSIUM 4.5 mmol/l (3.5-5.1); SODIUM 131 mmol/l (137-146)
[2022-07-25 05:18] LABS: INTERNATIONAL NORMALIZED RATIO 2.9 RATIO (0.7-1.3); PROTHROMBIN TIME 27.6 SECONDS (9.0-12.5)
[2022-07-26 00:08] VITALS: BP 111/74
[2022-07-26 04:03] VITALS: BP 112/62
[2022-07-26 05:53] LABS: ANION GAP 10 (6-22 (CALC)); BUN 25 mg/dL (8-23); BUN/CREATININE RATIO 38 (12-20 (CALC)); CARBON DIOXIDE 22 mmol/l (22-30); CHLORIDE 105 mmol/l (95-108); CREATININE 0.7 mg/dL (0.5-1.0); GFR FOR AFR.AMER. > 60 ML/MIN (>=60 (CALC)); GFR OTHER RACES > 60 ML/MIN (>=60 (CALC)); MAGNESIUM 2.4 mg/dL (1.6-2.3); POTASSIUM 4.7 mmol/l (3.5-5.1); SODIUM 132 mmol/l (137-146)
[2022-07-26 05:57] LABS: INTERNATIONAL NORMALIZED RATIO 4.3 RATIO (0.7-1.3)
[2022-07-26 06:54] VITALS: BP 123/62
[2022-07-26 10:02] LABS: URINE BILIRUBIN - DIPSTICK NEGATIVE (NEGATIVE); URINE BLOOD DIPSTICK NEGATIVE (NEGATIVE); URINE COLOR YELLOW; URINE GLUCOSE - DIPSTICK NEGATIVE (NEGATIVE); URINE KETONE TRACE mg/dL (NEGATIVE); URINE LEUK ESTERASE NEGATIVE (Negative); URINE NITRITE - DIPSTICK NEGATIVE (Negative); URINE PROTEIN - DIPSTICK 30 mg/dL (NEG-TRACE); URINE SPECIFIC GRAVITY >=1.030; URINE UROBILINOGEN - DIPSTICK 0.2 E.U./dL (0.2)
[2022-07-26 10:17] LABS: URINE CLARITY SL CLOUDY
[2022-07-26 10:18] LABS: URINE BACTERIA FEW hpf; URINE EPITHELIAL CELLS MODERATE EPI/hpf (0-FEW); URINE MUCUS MODERATE hpf (NONE-FEW); URINE WBC 0-2 WBC/hpf (0-5)
[2022-07-26 10:19] LABS: URINE HYALINE CAST FEW lpf (NONE-RARE)
[2022-07-26 14:16] VITALS: BP 119/63
[2022-07-26 14:26] VITALS: BP 119/63
[2022-07-26 20:33] VITALS: BP 114/69
[2022-07-27] VITALS (10 sets, daily range): BP systolic 97–119; BP diastolic 39–76
[2022-07-27 05:02] LABS: INTERNATIONAL NORMALIZED RATIO 4.3 RATIO (0.7-1.3)
[2022-07-27 05:15] LABS: ANION GAP 10 (6-22 (CALC)); BUN 25 mg/dL (8-23); BUN/CREATININE RATIO 36 (12-20 (CALC)); CARBON DIOXIDE 24 mmol/l (22-30); CHLORIDE 104 mmol/l (95-108); CREATININE 0.7 mg/dL (0.5-1.0); GFR FOR AFR.AMER. > 60 ML/MIN (>=60 (CALC)); GFR OTHER RACES > 60 ML/MIN (>=60 (CALC)); POTASSIUM 4.2 mmol/l (3.5-5.1); SODIUM 133 mmol/l (137-146)
[2022-07-27] MEDS ORDERED: TRAMADOL HYDROC50 M1 (12:39)
[2022-07-27 14:29] LABS: HEMATOCRIT 31.2 % (37.0-47.0); IMMATURE GRANULOCYTES 0.6 % (0.0-5.0); MEAN CELL VOLUME 101.3 fL CALC (80.0-100.0); MEAN CORPUSCULAR HGB 32.5 pG CALC (26.0-32.0); MEAN CORPUSCULAR HGB CONC 32.1 g/dL CAL (32.0-36.0); NEUT# 6.83 thou/uL (2.00-7.15); RED BLOOD COUNT 3.08 mill/uL (4.20-5.60); RED CELL DISTRI WIDTH 22.8 % (11.5-15.5)
[2022-07-27] MEDS ORDERED: WARFARIN5 MG PO (14:36)
[2022-07-27] MEDS ORDERED: PANTOPRAZOLE SO40 M1 PO (14:37)
[2022-07-27] MEDS ORDERED: FERROUS SULFAT325 MG PO (15:56)
[2022-07-28 04:14] VITALS: BP 103/54
[2022-07-28 05:36] LABS: HEMATOCRIT 28.5 % (37.0-47.0); HEMOGLOBIN 8.8 g/dl (12.0-16.0); MEAN CORPUSCULAR HGB 32.1 pG CALC (26.0-32.0); MEAN CORPUSCULAR HGB CONC 30.9 g/dL CAL (32.0-36.0); NEUT# 3.35 thou/uL (2.00-7.15); RED BLOOD COUNT 2.74 mill/uL (4.20-5.60); RED CELL DISTRI WIDTH 22.4 % (11.5-15.5)
[2022-07-28 05:37] LABS: ANION GAP 9 (6-22 (CALC)); BUN 22 mg/dL (8-23); BUN/CREATININE RATIO 39 (12-20 (CALC)); CARBON DIOXIDE 26 mmol/l (22-30); CHLORIDE 103 mmol/l (95-108); CREATININE 0.6 mg/dL (0.5-1.0); GFR FOR AFR.AMER. > 60 ML/MIN (>=60 (CALC)); GFR OTHER RACES > 60 ML/MIN (>=60 (CALC)); MAGNESIUM 2.2 mg/dL (1.6-2.3); POTASSIUM 3.8 mmol/l (3.5-5.1); SODIUM 134 mmol/l (137-146)
[2022-07-28 05:44] LABS: INTERNATIONAL NORMALIZED RATIO 2.9 RATIO (0.7-1.3); PROTHROMBIN TIME 27.4 SECONDS (9.0-12.5)
[2022-07-28 06:11] VITALS: BP 102/55
[2022-07-28 10:30] VITALS: BP 127/82
[2022-07-28 14:53] VITALS: BP 130/74
[2022-07-28 18:36] VITALS: BP 114/47
[2022-07-29] VITALS (7 sets, daily range): BP systolic 100–116; BP diastolic 44–65
[2022-07-29 04:52] LABS: HEMATOCRIT 30.1 % (37.0-47.0); HEMOGLOBIN 9.4 g/dl (12.0-16.0); IMMATURE GRANULOCYTES 0.8 % (0.0-5.0); MEAN CELL VOLUME 103.8 fL CALC (80.0-100.0); MEAN CORPUSCULAR HGB 32.4 pG CALC (26.0-32.0); MEAN CORPUSCULAR HGB CONC 31.2 g/dL CAL (32.0-36.0); NEUT# 3.51 thou/uL (2.00-7.15); RED BLOOD COUNT 2.9 mill/uL (4.20-5.60); RED CELL DISTRI WIDTH 22.1 % (11.5-15.5)
[2022-07-29 05:09] LABS: INTERNATIONAL NORMALIZED RATIO 1.9 RATIO (0.7-1.3); PROTHROMBIN TIME 18.8 SECONDS (9.0-12.5)
[2022-07-29 05:15] LABS: ALBUMIN 3.3 g/dL (3.2-5.0); ALKALINE PHOSPHATASE 120 u/l (38-126); ANION GAP 11 (6-22 (CALC)); BILIRUBIN, TOTAL 1.3 mg/dL (0.0-1.4); BUN 22 mg/dL (8-23); BUN/CREATININE RATIO 38 (12-20 (CALC)); CARBON DIOXIDE 26 mmol/l (22-30); CHLORIDE 103 mmol/l (95-108); CREATININE 0.6 mg/dL (0.5-1.0); GFR FOR AFR.AMER. > 60 ML/MIN (>=60 (CALC)); GFR OTHER RACES > 60 ML/MIN (>=60 (CALC)); SGOT/AST 72 u/l (9-36); SODIUM 136 mmol/l (137-146)
[2022-07-30] VITALS (8 sets, daily range): BP systolic 97–114; BP diastolic 42–57
[2022-07-30 05:28] LABS: HEMATOCRIT 28.5 % (37.0-47.0); HEMOGLOBIN 9.1 g/dl (12.0-16.0); IMMATURE GRANULOCYTES 1.1 % (0.0-5.0); MEAN CELL VOLUME 103.3 fL CALC (80.0-100.0); MEAN CORPUSCULAR HGB CONC 31.9 g/dL CAL (32.0-36.0); NEUT# 3.58 thou/uL (2.00-7.15); RED BLOOD COUNT 2.76 mill/uL (4.20-5.60); RED CELL DISTRI WIDTH 21.6 % (11.5-15.5)
[2022-07-30 05:39] LABS: INTERNATIONAL NORMALIZED RATIO 1.5 RATIO (0.7-1.3); PROTHROMBIN TIME 15.1 SECONDS (9.0-12.5)
[2022-07-30 05:40] LABS: ALKALINE PHOSPHATASE 122 u/l (38-126); ANION GAP 7 (6-22 (CALC)); BILIRUBIN, TOTAL 1.2 mg/dL (0.0-1.4); BUN 20 mg/dL (8-23); BUN/CREATININE RATIO 35 (12-20 (CALC)); CARBON DIOXIDE 29 mmol/l (22-30); CHLORIDE 102 mmol/l (95-108); CREATININE 0.6 mg/dL (0.5-1.0); GFR FOR AFR.AMER. > 60 ML/MIN (>=60 (CALC)); GFR OTHER RACES > 60 ML/MIN (>=60 (CALC)); POTASSIUM 4.1 mmol/l (3.5-5.1); SGOT/AST 65 u/l (9-36); SODIUM 134 mmol/l (137-146); TOTAL PROTEIN 6.6 g/dL (6.3-8.2)
[2022-07-31] VITALS (8 sets, daily range): BP systolic 103–126; BP diastolic 51–68
[2022-07-31 05:06] LABS: HEMATOCRIT 28.9 % (37.0-47.0); HEMOGLOBIN 8.8 g/dl (12.0-16.0); IMMATURE GRANULOCYTES 1.4 % (0.0-5.0); MEAN CORPUSCULAR HGB 31.7 pG CALC (26.0-32.0); MEAN CORPUSCULAR HGB CONC 30.4 g/dL CAL (32.0-36.0); NEUT# 4.16 thou/uL (2.00-7.15); RED BLOOD COUNT 2.78 mill/uL (4.20-5.60); RED CELL DISTRI WIDTH 21.3 % (11.5-15.5)
[2022-07-31 05:34] LABS: INTERNATIONAL NORMALIZED RATIO 1.4 RATIO (0.7-1.3); PROTHROMBIN TIME 13.5 SECONDS (9.0-12.5)
[2022-07-31 05:37] LABS: AMYLASE 155 u/l (30-110); ANION GAP 8 (6-22 (CALC)); BUN 19 mg/dL (8-23); BUN/CREATININE RATIO 33 (12-20 (CALC)); CARBON DIOXIDE 31 mmol/l (22-30); CHLORIDE 102 mmol/l (95-108); CREATININE 0.6 mg/dL (0.5-1.0); GFR FOR AFR.AMER. > 60 ML/MIN (>=60 (CALC)); GFR OTHER RACES > 60 ML/MIN (>=60 (CALC)); LIPASE 383 u/l (23-300); MAGNESIUM 2.2 mg/dL (1.6-2.3); SODIUM 136 mmol/l (137-146)
[2022-08-01] VITALS (7 sets, daily range): BP systolic 108–137; BP diastolic 41–68
[2022-08-01 05:34] LABS: HEMATOCRIT 28.4 % (37.0-47.0); HEMOGLOBIN 8.7 g/dl (12.0-16.0); IMMATURE GRANULOCYTES 1.7 % (0.0-5.0); MEAN CELL VOLUME 103.6 fL CALC (80.0-100.0); MEAN CORPUSCULAR HGB 31.8 pG CALC (26.0-32.0); MEAN CORPUSCULAR HGB CONC 30.6 g/dL CAL (32.0-36.0); NEUT# 3.76 thou/uL (2.00-7.15); RED BLOOD COUNT 2.74 mill/uL (4.20-5.60); RED CELL DISTRI WIDTH 21.1 % (11.5-15.5)
[2022-08-01 05:52] LABS: ALBUMIN 2.9 g/dL (3.2-5.0); ALKALINE PHOSPHATASE 122 u/l (38-126); ANION GAP 6 (6-22 (CALC)); BUN 19 mg/dL (8-23); BUN/CREATININE RATIO 36 (12-20 (CALC)); CARBON DIOXIDE 30 mmol/l (22-30); CHLORIDE 101 mmol/l (95-108); CREATININE 0.5 mg/dL (0.5-1.0); GFR FOR AFR.AMER. > 60 ML/MIN (>=60 (CALC)); GFR OTHER RACES > 60 ML/MIN (>=60 (CALC)); MAGNESIUM 2.1 mg/dL (1.6-2.3); SGOT/AST 67 u/l (9-36); SODIUM 133 mmol/l (137-146); TOTAL PROTEIN 6.4 g/dL (6.3-8.2)
[2022-08-01 05:53] LABS: INTERNATIONAL NORMALIZED RATIO 1.7 RATIO (0.7-1.3); PROTHROMBIN TIME 16.1 SECONDS (9.0-12.5)
[2022-08-02] VITALS (7 sets, daily range): BP systolic 104–141; BP diastolic 40–69
[2022-08-02 06:09] LABS: INTERNATIONAL NORMALIZED RATIO 1.9 RATIO (0.7-1.3); PROTHROMBIN TIME 18.2 SECONDS (9.0-12.5)
[2022-08-02 06:28] LABS: HEMATOCRIT 28.5 % (37.0-47.0); HEMOGLOBIN 8.8 g/dl (12.0-16.0); MEAN CELL VOLUME 103.3 fL CALC (80.0-100.0); MEAN CORPUSCULAR HGB 31.9 pG CALC (26.0-32.0); MEAN CORPUSCULAR HGB CONC 30.9 g/dL CAL (32.0-36.0); RED BLOOD COUNT 2.76 mill/uL (4.20-5.60); RED CELL DISTRI WIDTH 20.9 % (11.5-15.5)
[2022-08-02 06:54] LABS: ANION GAP 10 (6-22 (CALC)); BUN 17 mg/dL (8-23); BUN/CREATININE RATIO 31 (12-20 (CALC)); CARBON DIOXIDE 29 mmol/l (22-30); CHLORIDE 102 mmol/l (95-108); CREATININE 0.5 mg/dL (0.5-1.0); GFR FOR AFR.AMER. > 60 ML/MIN (>=60 (CALC)); GFR OTHER RACES > 60 ML/MIN (>=60 (CALC)); POTASSIUM 4.1 mmol/l (3.5-5.1); SODIUM 136 mmol/l (137-146)
[2022-08-03] VITALS (7 sets, daily range): BP systolic 102–132; BP diastolic 52–63
[2022-08-03 04:18] LABS: INTERNATIONAL NORMALIZED RATIO 2.1 RATIO (0.7-1.3); PROTHROMBIN TIME 20.1 SECONDS (9.0-12.5)
[2022-08-03 04:34] LABS: ALBUMIN 3.1 g/dL (3.2-5.0); ALKALINE PHOSPHATASE 131 u/l (38-126); ANION GAP 5 (6-22 (CALC)); BILIRUBIN, TOTAL 1.3 mg/dL (0.0-1.4); BUN 16 mg/dL (8-23); BUN/CREATININE RATIO 31 (12-20 (CALC)); CARBON DIOXIDE 34 mmol/l (22-30); CHLORIDE 98 mmol/l (95-108); CREATININE 0.5 mg/dL (0.5-1.0); GFR FOR AFR.AMER. > 60 ML/MIN (>=60 (CALC)); GFR OTHER RACES > 60 ML/MIN (>=60 (CALC)); POTASSIUM 3.8 mmol/l (3.5-5.1); SGOT/AST 60 u/l (9-36); SODIUM 133 mmol/l (137-146); TOTAL PROTEIN 6.9 g/dL (6.3-8.2)
[2022-08-04] VITALS (7 sets, daily range): BP systolic 92–120; BP diastolic 45–65
[2022-08-04 06:20] LABS: INTERNATIONAL NORMALIZED RATIO 2.4 RATIO (0.7-1.3)
[2022-08-05 00:27] VITALS: BP 93/67
[2022-08-05 04:24] VITALS: BP 121/54
[2022-08-05 05:29] LABS: ANION GAP 8 (6-22 (CALC)); BUN 18 mg/dL (8-23); BUN/CREATININE RATIO 34 (12-20 (CALC)); CARBON DIOXIDE 35 mmol/l (22-30); CHLORIDE 96 mmol/l (95-108); CREATININE 0.5 mg/dL (0.5-1.0); GFR FOR AFR.AMER. > 60 ML/MIN (>=60 (CALC)); GFR OTHER RACES > 60 ML/MIN (>=60 (CALC)); POTASSIUM 4.1 mmol/l (3.5-5.1); SODIUM 135 mmol/l (137-146)
[2022-08-05 05:37] LABS: HEMATOCRIT 28.7 % (37.0-47.0); HEMOGLOBIN 8.7 g/dl (12.0-16.0); IMMATURE GRANULOCYTES 1.2 % (0.0-5.0); MEAN CELL VOLUME 102.1 fL CALC (80.0-100.0); MEAN CORPUSCULAR HGB CONC 30.3 g/dL CAL (32.0-36.0); NEUT# 4.89 thou/uL (2.00-7.15); RED BLOOD COUNT 2.81 mill/uL (4.20-5.60); RED CELL DISTRI WIDTH 20.4 % (11.5-15.5)
[2022-08-05 06:24] VITALS: BP 111/42
[2022-08-05 07:31] LABS: INTERNATIONAL NORMALIZED RATIO 2.5 RATIO (0.7-1.3); PROTHROMBIN TIME 24.3 SECONDS (9.0-12.5)
[2022-08-05 10:31] VITALS: BP 111/49
[2022-08-05 15:33] VITALS: BP 112/57
[2022-08-05 19:22] VITALS: BP 109/59
[2022-08-06] VITALS (8 sets, daily range): BP systolic 104–124; BP diastolic 47–66
[2022-08-06 06:18] LABS: INTERNATIONAL NORMALIZED RATIO 2.4 RATIO (0.7-1.3)
[2022-08-07] VITALS (7 sets, daily range): BP systolic 87–121; BP diastolic 44–79
[2022-08-07 06:05] LABS: INTERNATIONAL NORMALIZED RATIO 2.7 RATIO (0.7-1.3); PROTHROMBIN TIME 26.1 SECONDS (9.0-12.5)
[2022-08-08 00:16] VITALS: BP 110/53
[2022-08-08 04:23] VITALS: BP 102/53
[2022-08-08 07:05] VITALS: BP 117/59
[2022-08-08 12:10] VITALS: BP 108/55
[2022-08-08] MEDS ORDERED: HYDROCORTISONE1 % TOP (13:30)
== END 2022-08-08 14:20 | DRG 193 ==
LOC: ED 17:53 → ED-I 21:45 → ED 22:08 → MS2 22:09
PROVIDERS: Family Medicine; Internal Medicine; Nurse Practitioner; ADMIT Internal Medicine; ATTEND Internal Medicine
PROC: 30233N1 Transfusion of Nonautologous Red Blood Cells into Peripheral Vein, Percutaneous Approach (ICD-10-PCS; principal; 2022-07-21)
DX: J18.9 Pneumonia, unspecified organism (principal); J96.01 Acute respiratory failure with hypoxia; I48.19 Other persistent atrial fibrillation; D68.32 Hemorrhagic disorder due to extrinsic circulating anticoagulants; I50.32 Chronic diastolic (congestive) heart failure; D50.9 Iron deficiency anemia, unspecified; I11.0 Hypertensive heart disease with heart failure; R04.0 Epistaxis; I27.20 Pulmonary hypertension, unspecified; I25.10 Atherosclerotic heart disease of native coronary artery without angina pectoris; J43.9 Emphysema, unspecified; J92.9 Pleural plaque without asbestos; I44.7 Left bundle-branch block, unspecified; R74.8 Abnormal levels of other serum enzymes; T36.95XA Adverse effect of unspecified systemic antibiotic, initial encounter; G31.84 Mild cognitive impairment of uncertain or unknown etiology; M06.9 Rheumatoid arthritis, unspecified; T45.515A Adverse effect of anticoagulants, initial encounter; Z95.2 Presence of prosthetic heart valve; Z79.01 Long term (current) use of anticoagulants; Z20.822 Contact with and (suspected) exposure to COVID-19; Z79.620 Long term (current) use of immunosuppressive biologic
CPT/HCPCS: J0692; P9016; Q9967

== ENCOUNTER 2022-08-19 12:01 | Emergency (ER) | payer MEDICARE, MEDICAID ==
[2022-08-19] VITALS (12 sets, daily range): BP systolic 90–103; BP diastolic 41–54
[~2022-08-19] VITALS: Ht 167.6 cm; Wt 75.0 kg
[~2022-08-19 12:01] MED LIST changes: +FERROUS SULFAT325 MG PO; +HYDROCORTISONE1 % TOP; +TRAMADOL HYDROC50 M1; +WARFARIN5 MG PO
[2022-08-19] MEDS ORDERED: BACTRIM DS1 TAB PO (13:53)
== END 2022-08-19 14:42 | disposition home or self-care (01) ==
LOC: ED 12:01
PROC: 0H9GXZZ Drainage of Left Hand Skin, External Approach (ICD-10-PCS; principal; 2022-08-19)
DX: L03.012 Cellulitis of left finger (principal); I10 Essential (primary) hypertension; I48.91 Unspecified atrial fibrillation; M06.9 Rheumatoid arthritis, unspecified; Z95.1 Presence of aortocoronary bypass graft

== ENCOUNTER 2022-09-12 16:19 | Emergency (ER) | payer MEDICARE, MEDICAID ==
[~2022-09-12] VITALS: Ht 167.6 cm; Wt 70.0 kg
[~2022-09-12 16:19] MED LIST changes: +BACTRIM DS1 TAB PO
[2022-09-12 16:34] VITALS: BP 116/63
[2022-09-12 16:46] VITALS: BP 108/86
[2022-09-12] MEDS ORDERED: WARFARIN7.5 MG PO (16:58)
[2022-09-12 17:01] VITALS: BP 113/55
[2022-09-12] MEDS ORDERED: CALCIUM500 M5 PO (17:09)
== END 2022-09-12 17:25 | disposition home or self-care (01) ==
LOC: ED 16:19
DX: R04.0 Epistaxis (principal); I10 Essential (primary) hypertension; I48.91 Unspecified atrial fibrillation; D64.9 Anemia, unspecified; M06.9 Rheumatoid arthritis, unspecified; Z95.1 Presence of aortocoronary bypass graft; Z79.01 Long term (current) use of anticoagulants

== ENCOUNTER 2022-09-17 02:52 | Inpatient (IN) | payer MEDICARE, MEDICAID ==
[2022-09-17] VITALS (73 sets, daily range): BP systolic 49–131; BP diastolic 30–82
[~2022-09-17] VITALS: Ht 167.6 cm; Wt 72.7 kg
[~2022-09-17 02:52] MED LIST changes: +CALCIUM500 M5 PO
[2022-09-17 03:33] LABS: HEMATOCRIT 25.6 % (37.0-47.0); HEMOGLOBIN 8.1 g/dl (12.0-16.0); IMMATURE GRANULOCYTES 0.5 % (0.0-5.0); MEAN CORPUSCULAR HGB 29.8 pG CALC (26.0-32.0); MEAN CORPUSCULAR HGB CONC 31.6 g/dL CAL (32.0-36.0); NEUT# 1.51 thou/uL (2.00-7.15); RED BLOOD COUNT 2.72 mill/uL (4.20-5.60); RED CELL DISTRI WIDTH 19.7 % (11.5-15.5)
[2022-09-17 03:41] LABS: MEAN CELL VOLUME 94.1 fL CALC (80.0-100.0)
[2022-09-17 03:50] LABS: ALKALINE PHOSPHATASE 105 u/l (38-126); ANION GAP 9 (6-22 (CALC)); BILIRUBIN, TOTAL 1.6 mg/dL (0.0-1.4); BUN 19 mg/dL (8-23); BUN/CREATININE RATIO 30 (12-20 (CALC)); CARBON DIOXIDE 24 mmol/l (22-30); CHLORIDE 106 mmol/l (95-108); CREATININE 0.6 mg/dL (0.5-1.0); GFR FOR AFR.AMER. > 60 ML/MIN (>=60 (CALC)); GFR OTHER RACES > 60 ML/MIN (>=60 (CALC)); POTASSIUM 3.3 mmol/l (3.5-5.1); SGOT/AST 35 u/l (9-36); SODIUM 136 mmol/l (137-146); TOTAL PROTEIN 6.8 g/dL (6.3-8.2)
[2022-09-17 03:53] LABS: INTERNATIONAL NORMALIZED RATIO 7.2 RATIO (0.7-1.3)
[2022-09-17 03:54] LABS: PROTHROMBIN TIME 65.3 SECONDS (9.0-12.5)
[2022-09-17] MEDS ORDERED: REMICADE INJ100 MG IV (05:33)
[2022-09-17 08:40] LABS: HEMATOCRIT 25.5 % (37.0-47.0); MEAN CELL VOLUME 95.9 fL CALC (80.0-100.0); MEAN CORPUSCULAR HGB 30.1 pG CALC (26.0-32.0); MEAN CORPUSCULAR HGB CONC 31.4 g/dL CAL (32.0-36.0); RED BLOOD COUNT 2.66 mill/uL (4.20-5.60)
[2022-09-17 09:10] LABS: MANUAL DIFFERENTIAL YES
[2022-09-17 09:34] LABS: BAND 0 % (0-8)
[2022-09-17 09:35] LABS: PLATELET COUNT 34 thou/uL (130-400); PLATELET ESTIMATE MARKED DECREASE
[2022-09-18] VITALS (59 sets, daily range): BP systolic 49–117; BP diastolic 23–79
[2022-09-18 05:10] LABS: HEMATOCRIT 24.2 % (37.0-47.0); HEMOGLOBIN 7.7 g/dl (12.0-16.0); MEAN CORPUSCULAR HGB 30.6 pG CALC (26.0-32.0); MEAN CORPUSCULAR HGB CONC 31.8 g/dL CAL (32.0-36.0); RED BLOOD COUNT 2.52 mill/uL (4.20-5.60); RED CELL DISTRI WIDTH 20.5 % (11.5-15.5)
[2022-09-18 05:45] LABS: BUN 19 mg/dL (8-23); BUN/CREATININE RATIO 32 (12-20 (CALC)); CARBON DIOXIDE 23 mmol/l (22-30); CHLORIDE 107 mmol/l (95-108); CREATININE 0.6 mg/dL (0.5-1.0); GFR FOR AFR.AMER. > 60 ML/MIN (>=60 (CALC)); GFR OTHER RACES > 60 ML/MIN (>=60 (CALC)); MAGNESIUM 1.7 mg/dL (1.6-2.3); SODIUM 134 mmol/l (137-146)
[2022-09-18 05:46] LABS: ANION GAP 8 (6-22 (CALC))
[2022-09-18 05:47] LABS: INTERNATIONAL NORMALIZED RATIO 1.4 RATIO (0.7-1.3); PROTHROMBIN TIME 13.8 SECONDS (9.0-12.5)
[2022-09-19] VITALS (22 sets, daily range): BP systolic 76–134; BP diastolic 42–77
[2022-09-19 05:01] LABS: HEMATOCRIT 24.3 % (37.0-47.0); HEMOGLOBIN 7.6 g/dl (12.0-16.0); MEAN CELL VOLUME 97.6 fL CALC (80.0-100.0); MEAN CORPUSCULAR HGB 30.5 pG CALC (26.0-32.0); MEAN CORPUSCULAR HGB CONC 31.3 g/dL CAL (32.0-36.0); RED BLOOD COUNT 2.49 mill/uL (4.20-5.60)
[2022-09-19 05:23] LABS: INTERNATIONAL NORMALIZED RATIO 1.4 RATIO (0.7-1.3); PROTHROMBIN TIME 13.6 SECONDS (9.0-12.5)
[2022-09-19 05:28] LABS: ANION GAP 9 (6-22 (CALC)); BUN 19 mg/dL (8-23); BUN/CREATININE RATIO 36 (12-20 (CALC)); CARBON DIOXIDE 23 mmol/l (22-30); CHLORIDE 107 mmol/l (95-108); CREATININE 0.5 mg/dL (0.5-1.0); GFR FOR AFR.AMER. > 60 ML/MIN (>=60 (CALC)); GFR OTHER RACES > 60 ML/MIN (>=60 (CALC)); MAGNESIUM 1.8 mg/dL (1.6-2.3); POTASSIUM 4.5 mmol/l (3.5-5.1); SODIUM 134 mmol/l (137-146)
[2022-09-20] VITALS (8 sets, daily range): BP systolic 106–131; BP diastolic 58–73
[2022-09-20 05:51] LABS: HEMATOCRIT 29.2 % (37.0-47.0); IMMATURE GRANULOCYTES 0.5 % (0.0-5.0); MEAN CORPUSCULAR HGB 31.9 pG CALC (26.0-32.0); MEAN CORPUSCULAR HGB CONC 32.9 g/dL CAL (32.0-36.0); NEUT# 9.66 thou/uL (2.00-7.15); RED BLOOD COUNT 3.01 mill/uL (4.20-5.60); RED CELL DISTRI WIDTH 19.8 % (11.5-15.5)
[2022-09-20 05:56] LABS: HEMOGLOBIN 9.6 g/dl (12.0-16.0)
[2022-09-20 06:07] LABS: INTERNATIONAL NORMALIZED RATIO 1.4 RATIO (0.7-1.3); PROTHROMBIN TIME 13.7 SECONDS (9.0-12.5)
[2022-09-20 06:11] LABS: ANION GAP 10 (6-22 (CALC)); BUN 23 mg/dL (8-23); BUN/CREATININE RATIO 42 (12-20 (CALC)); CARBON DIOXIDE 22 mmol/l (22-30); CHLORIDE 109 mmol/l (95-108); CREATININE 0.6 mg/dL (0.5-1.0); GFR FOR AFR.AMER. > 60 ML/MIN (>=60 (CALC)); GFR OTHER RACES > 60 ML/MIN (>=60 (CALC)); POTASSIUM 4.9 mmol/l (3.5-5.1); SODIUM 135 mmol/l (137-146)
[2022-09-21] VITALS (8 sets, daily range): BP systolic 108–121; BP diastolic 53–72
[2022-09-21 05:57] LABS: HEMATOCRIT 27.7 % (37.0-47.0); HEMOGLOBIN 9.1 g/dl (12.0-16.0); MEAN CELL VOLUME 98.9 fL CALC (80.0-100.0); MEAN CORPUSCULAR HGB 32.5 pG CALC (26.0-32.0); MEAN CORPUSCULAR HGB CONC 32.9 g/dL CAL (32.0-36.0); RED BLOOD COUNT 2.8 mill/uL (4.20-5.60); RED CELL DISTRI WIDTH 20.2 % (11.5-15.5)
[2022-09-21 06:07] LABS: ANION GAP 7 (6-22 (CALC)); BUN 22 mg/dL (8-23); BUN/CREATININE RATIO 43 (12-20 (CALC)); CARBON DIOXIDE 23 mmol/l (22-30); CHLORIDE 110 mmol/l (95-108); CREATININE 0.5 mg/dL (0.5-1.0); GFR FOR AFR.AMER. > 60 ML/MIN (>=60 (CALC)); GFR OTHER RACES > 60 ML/MIN (>=60 (CALC)); POTASSIUM 4.7 mmol/l (3.5-5.1); SODIUM 136 mmol/l (137-146)
[2022-09-21 06:18] LABS: INTERNATIONAL NORMALIZED RATIO 1.9 RATIO (0.7-1.3); PROTHROMBIN TIME 18.4 SECONDS (9.0-12.5)
[2022-09-22 00:12] VITALS: BP 105/58
[2022-09-22 05:15] LABS: HEMATOCRIT 28.2 % (37.0-47.0); HEMOGLOBIN 8.9 g/dl (12.0-16.0); MEAN CELL VOLUME 98.9 fL CALC (80.0-100.0); MEAN CORPUSCULAR HGB 31.2 pG CALC (26.0-32.0); MEAN CORPUSCULAR HGB CONC 31.6 g/dL CAL (32.0-36.0); RED BLOOD COUNT 2.85 mill/uL (4.20-5.60); RED CELL DISTRI WIDTH 20.1 % (11.5-15.5)
[2022-09-22 05:33] LABS: PROTHROMBIN TIME 23.5 SECONDS (9.0-12.5)
[2022-09-22 05:38] LABS: ANION GAP 9 (6-22 (CALC)); BUN 23 mg/dL (8-23); BUN/CREATININE RATIO 49 (12-20 (CALC)); CARBON DIOXIDE 24 mmol/l (22-30); CHLORIDE 108 mmol/l (95-108); CREATININE 0.5 mg/dL (0.5-1.0); GFR FOR AFR.AMER. > 60 ML/MIN (>=60 (CALC)); GFR OTHER RACES > 60 ML/MIN (>=60 (CALC)); POTASSIUM 4.6 mmol/l (3.5-5.1); SODIUM 135 mmol/l (137-146)
[2022-09-22 05:42] LABS: INTERNATIONAL NORMALIZED RATIO 2.5 RATIO (0.7-1.3)
[2022-09-22 06:23] VITALS: BP 124/74
[2022-09-22 18:52] VITALS: BP 130/56
[2022-09-23] VITALS (8 sets, daily range): BP systolic 107–132; BP diastolic 51–69
[2022-09-23 05:08] LABS: INTERNATIONAL NORMALIZED RATIO 2.8 RATIO (0.7-1.3); PROTHROMBIN TIME 26.9 SECONDS (9.0-12.5)
[2022-09-24 04:32] VITALS: BP 112/48
[2022-09-24 07:00] VITALS: BP 137/61
[2022-09-24 08:12] LABS: INTERNATIONAL NORMALIZED RATIO 2.7 RATIO (0.7-1.3); PROTHROMBIN TIME 26.1 SECONDS (9.0-12.5)
[2022-09-24 09:07] VITALS: BP 108/53
[2022-09-24 10:23] VITALS: BP 117/49
[2022-09-24] MEDS ORDERED: DECADRON2 MG PO (11:35)
== END 2022-09-24 14:43 | DRG 813 ==
LOC: ED 02:52 → ED-I 04:39 → ED 04:52 → ICU 04:53 → MS2 09-19 10:08
PROVIDERS: Emergency Medicine; ADMIT Internal Medicine; ATTEND Internal Medicine
PROC: 2Y41X5Z Packing of Nasal Region using Packing Material (ICD-10-PCS; principal; 2022-09-17)
PROC: 30233N1 Transfusion of Nonautologous Red Blood Cells into Peripheral Vein, Percutaneous Approach (ICD-10-PCS; 2022-09-19)
DX: D68.32 Hemorrhagic disorder due to extrinsic circulating anticoagulants (principal); J18.9 Pneumonia, unspecified organism; J96.01 Acute respiratory failure with hypoxia; D61.818 Other pancytopenia; R04.0 Epistaxis; T45.515A Adverse effect of anticoagulants, initial encounter; I48.0 Paroxysmal atrial fibrillation; I10 Essential (primary) hypertension; I25.10 Atherosclerotic heart disease of native coronary artery without angina pectoris; I95.9 Hypotension, unspecified; M06.9 Rheumatoid arthritis, unspecified; Z95.1 Presence of aortocoronary bypass graft; Z79.01 Long term (current) use of anticoagulants; Z95.2 Presence of prosthetic heart valve
CPT/HCPCS: J1650; P9016

== ENCOUNTER 2022-10-15 07:10 | Emergency (ER) | payer MEDICARE, MEDICAID ==
[~2022-10-15] VITALS: Ht 167.6 cm; Wt 73.0 kg
[2022-10-15] VITALS (38 sets, daily range): BP systolic 82–134; BP diastolic 22–91
[~2022-10-15 07:10] MED LIST changes: +DECADRON2 MG PO
[2022-10-15 08:08] LABS: URINE BILIRUBIN - DIPSTICK NEGATIVE (NEGATIVE); URINE BLOOD DIPSTICK NEGATIVE (NEGATIVE); URINE COLOR YELLOW; URINE GLUCOSE - DIPSTICK NEGATIVE (NEGATIVE); URINE KETONE TRACE mg/dL (NEGATIVE); URINE LEUK ESTERASE NEGATIVE (NEGATIVE); URINE PH 5.5 (4.5-8.0); URINE PROTEIN - DIPSTICK TRACE mg/dL (NEG-TRACE); URINE SPECIFIC GRAVITY >=1.030; URINE UROBILINOGEN - DIPSTICK 0.2 E.U./dL (0.2)
[2022-10-15 08:09] LABS: URINE NITRITE - DIPSTICK NEGATIVE (Negative)
[2022-10-15 08:14] LABS: HEMATOCRIT 30.9 % (37.0-47.0); HEMOGLOBIN 9.6 g/dl (12.0-16.0); IMMATURE GRANULOCYTES 0.7 % (0.0-5.0); MEAN CELL VOLUME 99.4 fL CALC (80.0-100.0); MEAN CORPUSCULAR HGB 30.9 pG CALC (26.0-32.0); MEAN CORPUSCULAR HGB CONC 31.1 g/dL CAL (32.0-36.0); NEUT# 16.49 thou/uL (2.00-7.15); RED BLOOD COUNT 3.11 mill/uL (4.20-5.60); RED CELL DISTRI WIDTH 21.4 % (11.5-15.5)
[2022-10-15 08:26] LABS: ALBUMIN 2.9 g/dL (3.2-5.0); BILIRUBIN, TOTAL 1.5 mg/dL (0.0-1.4); BUN 14 mg/dL (8-23); BUN/CREATININE RATIO 20 (12-20 (CALC)); CARBON DIOXIDE 22 mmol/l (22-30); CHLORIDE 105 mmol/l (95-108); CREATININE 0.7 mg/dL (0.5-1.0); GFR FOR AFR.AMER. > 60 ML/MIN (>=60 (CALC)); GFR OTHER RACES > 60 ML/MIN (>=60 (CALC)); SGOT/AST 45 u/l (9-36); SODIUM 135 mmol/l (137-146)
[2022-10-15 08:41] LABS: ALKALINE PHOSPHATASE 173 u/l (38-126); ANION GAP 11 (6-22 (CALC)); POTASSIUM 3.4 mmol/l (3.5-5.1); TOTAL PROTEIN 8.2 g/dL (6.3-8.2)
[2022-10-15 08:48] LABS: INTERNATIONAL NORMALIZED RATIO 3.2 RATIO (0.7-1.3); PROTHROMBIN TIME 29.8 SECONDS (9.0-12.5)
== END 2022-10-15 10:41 | disposition short-term general hospital (02) ==
LOC: ED 07:10 → ED-I 09:00 → ED 10:41
PROVIDERS: Family Medicine
PROC: 0T9B70Z Drainage of Bladder with Drainage Device, Via Natural or Artificial Opening (ICD-10-PCS; principal; 2022-10-15)
PROC: 0BH17EZ Insertion of Endotracheal Airway into Trachea, Via Natural or Artificial Opening (ICD-10-PCS; 2022-10-15)
PROC: 5A1935Z Respiratory Ventilation, Less than 24 Consecutive Hours (ICD-10-PCS; 2022-10-15)
PROC: 05HN33Z Insertion of Infusion Device into Left Internal Jugular Vein, Percutaneous Approach (ICD-10-PCS; 2022-10-15)
DX: A41.89 Other specified sepsis (principal); U07.1 COVID-19; R65.20 Severe sepsis without septic shock; J12.82 Pneumonia due to coronavirus disease 2019; I11.0 Hypertensive heart disease with heart failure; I50.9 Heart failure, unspecified; I48.91 Unspecified atrial fibrillation; M06.9 Rheumatoid arthritis, unspecified; D64.9 Anemia, unspecified; Z79.01 Long term (current) use of anticoagulants; Z95.1 Presence of aortocoronary bypass graft; Z95.2 Presence of prosthetic heart valve